=== PATIENT | female | born 1990 | race Two or more races ===

== ENCOUNTER 2023-03-24 12:25 | Emergency (ER) | payer BC, MEDICAID ==
[2023-03-24] MEDS ORDERED: LORazepam 0.5 MG TAB PO ONE (12:45)
[2023-03-24] MEDS ORDERED: LORazepam 0.5 MG TAB ONE (12:49)
[2023-03-24 12:55] LABS: Basophils # (auto) 0 10 ^3/uL (0-0.2); Basophils % (auto) 0.6 % (0.0-2.0); Eosinophils # (auto) 0.1 10 ^3/uL (0-0.8); Eosinophils % (auto) 1.2 % (0.0-7.0); Hematocrit 40.5 % (36.0-46.0); Hemoglobin 13.6 g/dL (12.2-16.2); Lymphocytes # (auto) 2.2 10 ^3/uL (0.4-5.4); Lymphocytes % (auto) 37.7 % (10.0-50.0); Mean Corpuscular Hemoglobin 31.4 pg (28.0-32.0); Mean Corpuscular Hgb Conc. 33.6 g/dL (32.0-36.0); Mean Corpuscular Volume 93.4 fL (80.0-100.0); Monocytes # (auto) 0.4 10 ^3/uL (0-1.3); Monocytes % (auto) 6.2 % (0.0-12.0); Neutrophils # (auto) 3.1 10 ^3/uL (1.6-8.6); Neutrophils % (auto) 54.3 % (37.0-80.0); Nucleated Red Blood Cells % 0.1 %; Red Blood Cells 4.34 10^6/uL (4.0-5.20); Red Cell Distribution Width 13.9 % (11.8-14.3); White Blood Cell 5.8 10^3/uL (4.4-10.8)
[2023-03-24 13:43] LABS: Alanine Aminotransferase 12 U/L (7-40); Albumin 4.3 g/dL (3.2-4.8); Alkaline Phosphatase 99 U/L (46-116); Anion Gap 4 (5-15); Aspartate Aminotransferase 11 U/L (13-40); Blood Alcohol < 3.0 mg/dL (<10); Blood Urea Nitrogen 8 mg/dL (9-23); Carbon Dioxide 25 mmol/L (20-30); Chloride 112 mmol/L (98-107); Glucose 112 mg/dL (74-106); Potassium 3.9 mmol/L (3.5-5.1); Sodium 141 mmol/L (136-145)
[2023-03-24 13:44] LABS: Bilirubin, Total 0.3 mg/dL (0.2-1.0); Total Protein 6.9 g/dL (5.7-8.2)
[2023-03-24 13:46] LABS: Thyroid Stimulating Hormone 0.34 uIU/mL (0.55-4.78)
[2023-03-24 13:47] LABS: Beta HCG, Quantitative 0.7 mIU/mL (1.5-4.2)
[2023-03-24 14:07] LABS: Lipase 51 U/L (12-53)
[2023-03-24 14:08] LABS: Magnesium 1.8 mg/dL (1.6-2.6)
[2023-03-24 14:10] LABS: Acetaminophen < 2.0 UG/ML (10.0-20.0)
[2023-03-24 14:11] LABS: Salicylate < 3.0 mg/dL (2.8-20.0)
[2023-03-24 15:27] LABS: Free T4 (Free Thyroxine) 0.74 ng/dL (0.89-1.76)
[2023-03-24 17:23] VITALS: BP 101/61; PULSE 56; RESP 16; TEMP 98.6; O2SAT 100
== END 2023-03-24 17:26 | disposition home or self-care (01) ==
LOC: EDBD 12:25 → ER 12:25
DX: G40.909 Epilepsy, unspecified, not intractable, without status epilepticus (principal); R10.2 Pelvic and perineal pain; I10 Essential (primary) hypertension
CPT/HCPCS: 36415; 70450; 80053; 80320; 80329; 83690; 83735; 84439; 84443; 84481; 84702; 85025